=== PATIENT | female | born 1940 | race Caucasian/White ===

== ENCOUNTER 2017-08-08 12:38 | Observation (INO) | payer OTHER ==
[2017-08-08] MEDS ORDERED: IPRATROPIUM/ALBUTEROL 3 ML DEYVIAL IH ONE (13:02)
[2017-08-08] MEDS ORDERED: DEXAMETHASONE 10 MG/ML VIAL IVP ONE (13:03)
--- NOTE | 2017-08-08 13:09 | EDPHY ---
H & P Time Seen by Provider: 08/08/17 12:54 HPI/ROS: HPI Shortness of breath, cough. 67-year-old female by private vehicle. This patient is visiting her granddaughter from [facility]. She reports that yesterday she developed a mild sore throat with nasal congestion followed by a dry nonproductive cough which has persisted and worsened through today. She comes to the emergency department with complaint of continued cough and worsening shortness of breath since this morning. Denies fever. No chest pain. ROS: Constitutional: No fever, no chills. No weakness. Eyes: No discharge. No changes in vision. ENT: As above. Respiratory: As above. Cardiac: No chest pain, no palpitations. Gastrointestinal: No abdominal pain, no vomiting, no diarrhea. Genitourinary: No hematuria. No dysuria or increased frequency with urination. Musculoskeletal: No back pain. No neck pain. No myalgias or arthralgias. Skin: No rashes. Neurological: No headache. No focal weakness or altered sensation. Past medical history: Hypertension, type 2 diabetes. Medications include Benicar Coreg and aspirin. Social history: Nonsmoker. Visiting daughter and from [facility]. Denies alcohol. Physical Exam: General Appearance: Alert pleasant 67-year-old female, mildly dyspneic with intermittent dry cough, but no distress. This patient is responding to questions appropriately and in full sentences. This patient appears well- hydrated and well-nourished. Eyes: Pupils equal and round no pallor or injection. No lid edema, erythema or injection. ENT, Mouth: Mucous membranes are moist. The pharyngeal tissues are unremarkable. No edema or swelling. No asymmetry suggestive of abscess. Mild diffuse pharyngeal erythema. No exudates. Respiratory: There are no retractions, shallow lung sounds bilaterally with scant rhonchi intermittently in the mid lung joya. No tachypnea on my exam. Cardiovascular: Regular rate and rhythm. No murmur appreciated. Neurological: Motor sensory function is grossly intact. Cranial nerves are normal. Gait is normal. Skin: Warm and dry, no rashes. Musculoskeletal: Neck is supple and nontender. No cervical, submental, submandibular lymphadenopathy. Extremities are symmetrical. All joints range without pain or impingement. Psychiatric: No agitation. No depression. Database: EKG: EKG time is 1:12 p.m.; EKG shows a narrow complex normal sinus rhythm with a ventricular rate of 93. The DE, QRS, QT intervals are within normal limits. There are no ST-T wave changes indicative of ischemic or injury pattern. No evidence of right heart strain. Interpreted by me. Imaging: Chest x-ray PA and lateral; the cardiac mediastinal silhouette is unremarkable. No evidence of infiltrate or pneumothorax. Bronchitis with hypo inflation. No other acute cardiopulmonary disease process noted. Interpreted by me. Procedures: Emergency department course: Vital signs reviewed. She is moderately hypertensive. Pulse oximetry on room air 91%. IV placed. Chest x-ray and EKG to be obtained. Patient will be given a trial of albuterol/Atrovent nebulizers. She received 10 mg of IV Decadron as well. 1:50 p.m., patient returns from x-ray. Nurse reports to me that pulse oximetries on room air go from upper 80s to low 90s. She reports that she felt better after initial albuterol/Atrovent nebulizer treatment. She will be given a 3rd albuterol nebulizer as well as Tessalon Jo. 3:30 p.m., patient re-evaluated. She is sitting upright in a chair. She states she is feeling much better. Repeat pulmonary exam she is clear to auscultation bilaterally with good air movement. Resting room air pulse oximetry 93-94%. When she is up and ambulating she drops to 88-89%. I discussed the results of her blood work, EKG and chest x-ray. I strongly advised admission for observation but she does not want to do this. The patient competently engages in shared decision making. They demonstrate capacitance to make decisions. She is helping to take care of her daughter who is undergoing chemotherapy. She is to take her daughter to her chemotherapy appointment tomorrow morning. She is not currently staying with her daughter. She is asking for discharge but states that she can easily return to the emergency department if needed. Follow-up and return to emergency department precautions were thoroughly reviewed with her. I will prescribe her an albuterol inhaler. I did discuss antibiotic administration. Presentation is likely secondary to a viral bronchitis. She is declining antibiotics at this time. All of her questions were answered. 4:30 p.m., the patient has decided now that she would feel more comfortable being admitted to the hospitalist service overnight. Case discussed with hospitalist, Dr. Lamb, Dr. Lamb evaluated this patient in the emergency department and will admit this patient to the hospitalist service for observation overnight. Patient's remaining emergency department course under my care uneventful. She was admitted in stable condition. Differential Diagnosis: The differential diagnosis on this patient includes but is not limited to bronchitis with reactive airway disease, pneumonia, congestive heart failure, altitude related illness, pulmonary embolism, acute coronary syndrome. This represents a partial list of diagnoses considered. These considerations are based on history, physical exam, past history, reassessment and diagnostic testing. Smoking Status: Former smoker Constitutional: Initial Vital Signs Temperature (C) 37.3 C 08/08/17 12:40 Heart Rate 94 08/08/17 12:40 Respiratory Rate 18 08/08/17 12:40 Blood Pressure 165/87 H 08/08/17 12:40 O2 Sat (%) 91 L 08/08/17 12:40 O2 Delivery Mode Room Air Allergies/Adverse Reactions: metformin Allergy (Verified 08/08/17 12:50) Home Medications: Medication Instructions Recorded Aspirin EC [Aspirin EC 81 mg (*)] 81 mg PO DAILY 08/08/17 Carvedilol [Coreg (*)] 25 mg PO BIDMEAL 08/08/17 Olmesartan Medoxomil [Benicar 20 20 mg PO DAILY 08/08/17 mg (*)] Medical Decision Making - Diagnostics Imaging Results: Imaging Impressions Chest X-Ray 08/08/17 13:03 Impression: Bronchitis and hypoventilation. No pneumonia or effusion. - Data Points Laboratory Results: Laboratory Results 08/08/17 13:11 08/08/17 13:11 08/08/17 08/08/17 08/08/17 Unknown 13:11 13:11 WBC 7.50 10^3/uL 10^3/uL (3.80-9.50) RBC 5.34 10^6/uL H 10^6/uL (4.18-5.33) Hgb 15.1 g/dL g/dL (12.6-16.3) Hct 45.7 % % (38.0-47.0) MCV 85.6 fL fL (81.5-99.8) MCH 28.3 pg pg (27.9-34.1) MCHC 33.0 g/dL g/dL (32.4-36.7) RDW 13.6 % % (11.5-15.2) Plt Count 175 10^3/uL 10^3/uL (150-400) MPV 11.6 fL fL (8.7-11.7) Neut % (Auto) 85.0 % H % (39.3-74.2) Lymph % (Auto) 7.1 % L % (15.0-45.0) Kings % (Auto) 6.4 % % (4.5-13.0) Eos % (Auto) 0.7 % % (0.6-7.6) Baso % (Auto) 0.4 % % (0.3-1.7) Nucleat RBC Rel Count 0.0 % % (0.0-0.2) Absolute Neuts (auto) 6.38 10^3/uL 10^3/uL (1.70-6.50) Absolute Lymphs (auto) 0.53 10^3/uL L 10^3/uL (1.00-3.00) Absolute Monos (auto) 0.48 10^3/uL 10^3/uL (0.30-0.80) Absolute Eos (auto) 0.05 10^3/uL 10^3/uL (0.03-0.40) Absolute Basos (auto) 0.03 10^3/uL 10^3/uL (0.02-0.10) Absolute Nucleated RBC 0.00 10^3/uL 10^3/uL (0-0.01) Immature Gran % 0.4 % % (0.0-1.1) Immature Gran # 0.03 10^3/uL 10^3/uL (0.00-0.10) PT 13.5 SEC SEC (12.0-15.0) INR 1.01 (0.83-1.16) APTT 28.6 SEC SEC (23.0-38.0) D-Dimer 0.34 ug/mLFEU ug/mLFEU (0.00-0.50) Sodium 143 mEq/L mEq/L (135-145) Potassium 3.8 mEq/L mEq/L (3.5-5.2) Chloride 106 mEq/L mEq/L (97-110) Carbon Dioxide 25 mEq/l mEq/l (22-31) Anion Gap 12 mEq/L mEq/L (8-16) BUN 13 mg/dL mg/dL (7-23) Creatinine 0.5 mg/dL L mg/dL (0.6-1.0) Estimated GFR > 60 Glucose 133 mg/dL H mg/dL (70-100) Calcium 9.9 mg/dL mg/dL (8.5-10.4) Troponin I < 0.012 ng/mL ng/mL (0.000-0.034) NT-Pro-B Natriuret Pep 69 pg/mL pg/mL (0-450) Medications Given: Discontinued Medications Albuterol (Proventil Neb) 3 ml IH EDNOW ONE Stop: 08/08/17 13:52 Last Admin: 08/08/17 14:53 Dose: 3 ml Albuterol/Ipratropium (Duoneb) 6 ml IH EDNOW ONE Stop: 08/08/17 13:03 Last Admin: 08/08/17 13:25 Dose: 6 ml Benzonatate (Tessalon Pearles) 200 mg PO EDNOW ONE Stop: 08/08/17 13:57 Last Admin: 08/08/17 14:53 Dose: 200 mg Dexamethasone (Decadron Injection) 10 mg IVP EDNOW ONE Stop: 08/08/17 13:04 Last Admin: 08/08/17 13:25 Dose: 10 mg Departure - Departure Disposition: [facility] Inpatient Acute Clinical Impression: Acute bronchitis, Dyspnea, Hypoxia Additional Instructions: Read and follow provided instructions. Follow-up with your primary care physician when you return home to [place]. Take medication as prescribed. Albuterol meter dose inhaler: 1-2 puffs every 2-4 hours as needed for cough, wheezing or shortness of breath. Return to the emergency department immediately for worsening symptoms, worsening cough, any difficulty breathing, fever or other serious concerns.
--- NOTE | 2017-08-08 13:14 | CPEKG ---
Heart Rate: 93 RR Interval: 645 P-R Interval: 160 QRSD Interval: 82 QT Interval: 340 QTC Interval: 423 P Center Point: 38 QRS Center Point: -3 T Wave Center Point: 9 EKG Severity - NORMAL ECG - EKG Impression: SINUS RHYTHM Electronically Signed By: Julien Sharif 08-Aug-2017 13:43:51
[2017-08-08 13:28] LABS: PLATELET COUNT 175 10^3/uL (150-400)
[2017-08-08 13:45] LABS: INR 1.01 (0.83-1.16); PROTIME(PATIENT) 13.5 SEC (12.0-15.0)
[2017-08-08] MEDS ORDERED: ALBUTEROL 3 ML DEYVIAL IH ONE (13:51)
[2017-08-08] MEDS ORDERED: BENZONATATE 100 MG CAP PO ONE (13:56)
[2017-08-08] MEDS ORDERED: ALBUTEROL INH PREPACK MDI TAKEHOME ONE (15:37)
[2017-08-08] MEDS ORDERED: ONDANSETRON 4 MG/2 ML VIAL IVP PRN (16:28)
[2017-08-08] MEDS ORDERED: ACETAMINOPHEN 325 MG TAB PO PRN (16:28)
[2017-08-08] MEDS ORDERED: ONDANSETRON DISINTEGRATING 4 MG TAB PO PRN (16:28)
[2017-08-08] MEDS ORDERED: BENZONATATE 100 MG CAP PO PRN (16:30)
[2017-08-08] MEDS ORDERED: AZITHROMYCIN 250 MG TAB PO ONE ×2 (16:32→19:00)
[2017-08-08] MEDS ORDERED: IPRATROPIUM/ALBUTEROL 3 ML DEYVIAL IH PRN (16:33)
--- NOTE | 2017-08-08 17:15 | GHP ---
[f rep st] HISTORY AND PHYSICAL DATE OF ADMISSION: 08/08/2017 CHIEF COMPLAINT: Acute hypoxia, shortness of breath. HISTORY OF PRESENT ILLNESS: A pleasant 77-year-old female with history of hypertension, bronchitis, and prediabetes, who is here visiting her daughter from [place]. Patient has been in town since July 25 to help her daughter, who is currently diagnosed with cancer. She had a sudden onset of a scratchy throat on Monday, and then URI symptoms on Monday, including a dry cough and stuffy nose. She trialed Neti pot several times, without improvement of symptoms. She denies headaches, nausea, vomiting, or diarrhea. No ill contacts. No chest pain or shortness of breath with exertion. No lower extremity edema, PND, or pillow orthopnea. REVIEW OF SYSTEMS: I completed a 10-point review of systems, negative except noted in HPI. PAST MEDICAL HISTORY: Bronchitis, hypertension, prediabetes. PAST SURGICAL HISTORY: Deviated septum, dermoid cyst removal from ovary, right rotator cuff, 2 carpal tunnels, cholecystectomy. FAMILY HISTORY: Cancer, multiple myeloma, colon cancer, stomach cancer, leukemia. ALLERGIES: Metformin and . SOCIAL HISTORY: Lives in [place]. Currently her daughter is undergoing chemotherapy for pancreatic cancer. Smoked 3 years remotely in her 20s. Occasional wine with dinner. No illicits. HOME MEDICATIONS: Benicar 20 mg daily, Coreg 25 mg b.i.d., aspirin 81. PHYSICAL EXAMINATION: VITAL SIGNS: Temperature 37.3, blood pressure 139/79, heart rate in the 90s to 100s, 86% on room air. GENERAL: Sitting up in bed, no acute distress. HEENT: PERRLA. Oropharynx clear. Dry mucous membranes. CV: Tachy but regular. LUNGS: Diminished but clear (wheezy per ED report prior to nebs). ABDOMEN: Soft, nontender, nondistended. Positive bowel sounds. : No Valdez. MUSCULOSKELETAL: 5/5 upper and lower extremity strength. NEURO: 2 through 12 intact. PSYCH: Alert and oriented x3. LABORATORY DATA: WBC 7, hemoglobin 15, hematocrit 45, platelets 175. INR is 1.01, PT is 13. D-dimer is 0.34. Sodium 143, potassium 3.8, chloride 106, carbon dioxide 25, BUN 13, creatinine 0.5, glucose 133. Troponin less than 0.012. BNP is 69. Chest x-ray is personally reviewed by me: Bronchitis. No overt opacity. EKG: Normal sinus rhythm, ST flattening in 3, AVF. No old to compare. ASSESSMENT AND PLAN: 1. Mild acute hypoxic respiratory failure, 86 to 87 on room air, secondary to bronchitis versus viral infection. There is no overt pneumonia on x-ray. We will check a respiratory panel. Supportive care with Yumiko Donald. We will treat with Z-Dexter for inflammation. DuoNeb. 2. Benign hypertension. Resume home medications. 3. Prediabetes. Glucose is normal here. 4. DVT prophylaxis. Lovenox. 5. Disposition. Patient warrants observation admission given acute hypoxic respiratory failure warranting DuoNeb, pulse ox, and supportive care. Can likely discharge in the morning if clinically improved. /[id number]/MODL MTDD
[2017-08-08] MEDS: OSELTAMIVIR PHOSPHATE 75 MG CAP PO SCH (20:49)
[2017-08-08] MEDS ORDERED: ALBUTEROL 60 PUFFS/8 GM MDI IH PRN (21:49)
[2017-08-09 05:25] VITALS: RESP 16
[2017-08-09] MEDS ORDERED: CARVEDILOL 6.25 MG TAB PO SCH (08:00)
[2017-08-09] MEDS: OSELTAMIVIR PHOSPHATE 75 MG CAP PO SCH (08:30)
[2017-08-09] MEDS ORDERED: Herbals/Supplements -Info Only PO SCH (09:00)
[2017-08-09] MEDS ORDERED: OLMESARTAN MEDOXOMIL 20 MG TAB PO SCH (09:00)
[2017-08-09] MEDS ORDERED: ENOXAPARIN 40 MG/0.4 ML SYR SC SCH (09:00)
[2017-08-09] MEDS ORDERED: AZITHROMYCIN 250 MG TAB PO SCH (09:00)
[2017-08-09] MEDS ORDERED: CHOLECALCIFEROL VIT D3 1,000 UNITS TAB PO SCH (09:00)
[2017-08-09 15:01] VITALS: BP 132/74; PULSE 70; TEMP 97.9; O2SAT 91
--- NOTE | 2017-08-09 15:29 | GDS ---
[f rep st] DISCHARGE SUMMARY ALL DIAGNOSES: 1. Acute influenza A infection. 2. Bronchitis, reactive airways disease. 3. Hypertension. 4. Prediabetes. HOSPITAL COURSE: A 77-year-old female, admitted with dyspnea. Chest x-ray showed bronchitis. Her n fantasma swab was positive for influenza A H3. She has been started on Tamiflu. On the day of discharge she had significant improvement. She does not feel short of breath any more. She is ambulating. S he is not requiring any supplemental oxygen. She was treated with azithromycin which I do not think she needs moving forward given the diagnosis of influenza. I have given her a prescription for an ad ditional 4 days of Tamiflu to make a total of 10 doses. I have given her a prescription for an albut kristi inhaler, as well. Also I have given her a prescription for Tessalon Perles as needed for an jose e oing cough. She is in town visiting, I do not think she needs any immediate followup for this. /[id number]/MODL
--- NOTE | 2017-08-09 16:24 | ASMTCMCOM ---
CM Note CM Note Notes: Patient admitted for SOB - diagnosed with Influenza A. Given supportive treatment and recovered quickly. She will discharge home to her daughter's house, whom she is visiting. No discharge needs identified. Date Signed: 08/09/2017 04:23 PM Electronically Signed By:Julia Hirsch RN
[2017-08-09] MEDS ORDERED: ASPIRIN EC 81 MG TAB PO SCH (21:00)
== END 2017-08-09 16:45 | disposition home or self-care (01) ==
LOC: EDBD 12:38 → F1N 17:28
PROVIDERS: ADMIT Internal Medicine; ATTEND Student in an Organized Health Care Education/Training Program
DX: J11.1 Influenza due to unidentified influenza virus with other respiratory manifestations (principal); I10 Essential (primary) hypertension; R73.03 Prediabetes
CPT/HCPCS: 71046; 93005; 96374; 99285; G0378; J1100; J1650; J7613